=== PATIENT | male | born 1990 | race African-American/Black ===

== ENCOUNTER 2017-06-17 20:52 | Emergency (ER) | payer SELFPAY ==
[~2017-06-17] VITALS: Ht 190.5 cm; Wt 6.4 kg
[~2017-06-17 20:52] MED LIST: Z.0.NO CURRENT MEDS
[2017-06-17 20:54] VITALS: BP 120/74; PULSE 69; RESP 14; TEMP 98.3; O2SAT 100
--- NOTE | 2017-06-18 09:21 | PD ---
Physical Exam Date Seen by Provider: Jun 17, 2017 Time Seen by Provider: 21:03 Narrative 26-year-old male presents to the emergency department for evaluation of right eye irritation. He thinks he scratched his right eye today. Current pain is 5/ 10. Data Data Last Documented VS Vital Signs Date Time Temp Pulse Resp B/P (MAP) Pulse Ox O2 Delivery O2 Flow Rate FiO2 06/17/17 20:54 98.3 69 14 120/74 (89) 100 MDM Supervised Visit with DELBERT: No Narrative Course 26-year-old male presents to the emergency department for evaluation of right eye irritation. Patient was initially seen in triage. He left AGAINST MEDICAL ADVICE before he could be moved to medical bed. Diagnosis Primary Impression: Left against medical advice Patient Instructions: General Instructions Departure Forms: Tests/Procedures Disposition: 07 AGAINST MEDICAL ADVICE Ana Peng Jun 18, 2017 09:21
== END 2017-06-18 00:34 | disposition left against medical advice (07) ==
LOC: NED 23:45
DX: Z53.21 Procedure and treatment not carried out due to patient leaving prior to being seen by health care provider (principal)
CPT/HCPCS: 99281